=== PATIENT | male | born 1955 | race Caucasian/White ===

== ENCOUNTER 2020-09-04 12:49 | Emergency (ER) | payer SELFPAY ==
[~2020-09-04] VITALS: Ht 190.5 cm; Wt 90.7 kg
[~2020-09-04 12:49] MED LIST: FLOMAX0.4 MG PO; NORCO 5-325 TA1 EACH PO; ZOFRAN4 MG PO
--- NOTE | 2020-09-04 20:49 | EKG ---
[facility] [address] [facility] [place], [place] [address] Signed Atrial flutter with 2:1 AV conduction Cannot rule out Inferior infarct , age undetermined Abnormal ECG No previous ECGs available Confirmed by ALFREOD GIBSON MD ([id number] on 09/04/2020 8:49:01 PM Electronically Signed By: ALFREDO GIBSON MD 09/04/202048 PATIENT NAME: CASEMELO Electrocardiogram DATE OF : 59 PHYSICIAN: ALFREDO GIBSON MD REPORT #: [id number] REPORT IS CONFIDENTIAL AND NOT TO BE RELEASED WITHOUT AUTHORIZATION
[2020-09-04] MEDS ORDERED: METOPROLOL SUCC25 MG PO (23:50)
[2020-09-04] MEDS ORDERED: DOXYCYCLINE HY100 MG PO (23:50)
== END 2020-09-04 16:15 | disposition left against medical advice (07) ==
LOC: ED 12:49
DX: R20.2 Paresthesia of skin (principal); R00.0 Tachycardia, unspecified; R53.1 Weakness; Z20.822 Contact with and (suspected) exposure to COVID-19; Z87.891 Personal history of nicotine dependence; Z79.899 Other long term (current) drug therapy
CPT/HCPCS: 70450; 70496; 70498; 71045; 80053; 81001; 83735; 84484; 85025; 85610; 85730; 93005; 93010; 99285-25; C9803; J7030; Q9967; U0003

== ENCOUNTER 2020-09-04 21:24 | Emergency (ER) | payer SELFPAY ==
[~2020-09-04] VITALS: Ht 190.5 cm; Wt 88.9 kg
--- OUTSIDE RECORDS SUMMARY | 2020-09-04 21:26 | XMS ---
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 Gisell has no Care Guidelines for this patient. [facility] MO[facility] NOTE: Visits indicate total known visits. ED/C VISIT TRACKING (12 MO.) [facility] COMPLAINT: - WEAKNESS 09/04/2020 12:50 [facility] [place] TYPE: Emergency COMPLAINT: - R SIDE NUMBNESS/TINGLING 12/17/2019 04:09 [facility] [place] TYPE: Emergency COMPLAINT: - ABDOMINAL PAIN AND VOMITING DIAGNOSES: - Unspecified abdominal pain - Hydronephrosis with renal and ureteral calculous obstruction - Personal history of nicotine dependence INPATIENT VISIT TRACKING (12 MO.) No inpatient visits to display in this time frame [email or web address]
[2020-09-04] MEDS ORDERED: DOXYCYCLINE HY100 MG PO (23:50)
[2020-09-04] MEDS ORDERED: METOPROLOL SUCC25 MG PO (23:50)
== END 2020-09-05 00:14 | disposition home or self-care (01) ==
LOC: ED 21:24
DX: R20.2 Paresthesia of skin (principal); I48.20 Chronic atrial fibrillation, unspecified; L03.211 Cellulitis of face; I10 Essential (primary) hypertension; I48.91 Unspecified atrial fibrillation; Z87.891 Personal history of nicotine dependence
CPT/HCPCS: 99284